=== PATIENT | female | born 1960 | race Caucasian/White ===

== ENCOUNTER 2017-12-29 14:07 | Emergency (ER) | payer OTHER ==
[~2017-12-29] VITALS: Ht 167.6 cm; Wt 81.0 kg
[2017-12-29 14:09] VITALS: TEMP 36.7; Ht 167.6 cm; Wt 81.0 kg
--- NOTE | 2017-12-29 15:24 | DIAGNOSTIC IMAGING REPORT ---
R KNEE 3 VIEWS CLINICAL HISTORY: Right knee pain status post trauma COMPARISON: None. DISCUSSION: No acute fractures or dislocations are visualized. There are degenerative changes with dorsal patellar spurring. There is moderate lateral patellar tilt. There is prominent prepatellar soft tissue swelling. IMPRESSION: 1. Prominent prepatellar soft tissue swelling 2. No acute fractures or dislocations 3. Moderate lateral patellar tilt Electronically signed by: Brandon Johnston M.D. 12/29/2017 3:23 PM Dictated Date/Time: 12/29/2017 3:21 PM
[2017-12-29 16:52] VITALS: BP 136/87; PULSE 62; O2SAT 97
--- NOTE | 2017-12-29 17:04 | DIAGNOSTIC IMAGING REPORT ---
MAXILLOFACIAL CT CT DOSE: 660.80 mGy.cm HISTORY: Fall; L sided facial pain TECHNIQUE: Multiaxial CT images of the maxillofacial region were performed and reformatted in the coronal plane without the use of contrast. A dose lowering technique was utilized adhering to the principles of ALARA. COMPARISON: None. FINDINGS: The visualized cervical spine, skull base, pterygoid plates, nasal bones, lamina papyracea, orbital floors, mandible, and zygomatic arches are intact. No fractures. The orbits are unremarkable. Small left facial subcutaneous contusion. IMPRESSION: No fractures within the maxillofacial region. Electronically signed by: Angel Fernandez M.D. 12/29/2017 5:03 PM Dictated Date/Time: 12/29/2017 4:56 PM
--- NOTE | 2017-12-30 14:22 | EMERGENCY ROOM VISIT NOTE ---
ED Visit Note First contact with patient: 14:14 Chief Complaint: Right knee and left cheek pain. History of Present Illness: Ms. May is a 57-year-old white female who is brought into the ED via wheelchair accompanied by her daughter complaining of anterior right knee pain and left facial cheek pain. Patient reports approximately 2 hours prior to arrival at the hospital she was at work, tripped over her feet and fell onto the floor. She reports falling directly on to the anterior aspect of the right knee. Since that time she has had constant pain. She describes a combination of sharp and throbbing sensation of the knee. She rates her discomfort 7/10. Her pain is nonradiating. Sharp pain worsens with palpation of the anterior knee, flexion of the knee, and ambulation. She has not identified any alleviating factors related to the pain. She has not taken medication for pain prior to arrival at the hospital. Additionally she does report that she struck the left side of her face on the ground also and broke her glasses. Her pain is located over the proximal aspect of the zygomatic area and also the inferior left orbit. She describes this as an achy and throbbing sensation. She does not rate her discomfort but reports it is much less than her knee. Her pain worsens with palpation. She has not had a medication for pain prior to arrival at the hospital. She denies any dizziness, lightheadedness prior to the fall, loss of consciousness at the time of the fall and no signs of head injury since the fall. She denies any associated symptoms with her facial pain including visual changes, hearing changes, difficulty speaking, difficulty swallowing, difficulty ambulating/coordinating body movements, neck pain. She denies any associated symptoms with her knee pain including hip pain, ankle pain, leg weakness/numbness/tingling. Additionally she denies any previous significant injuries or surgeries to the knee. Review of Systems: As noted above in history of present illness. 8 body systems were reviewed and found to be negative as noted above. Past Medical History: Patient denies. Current Medications: Patient denies. Allergies to Medications: Patient denies. Social History: Patient is currently employed; she feels safe in her home environment; she denies tobacco use. Physical Examination: Vital Signs: Date Time Temp Pulse Resp B/P (MAP) Pulse Ox O2 Delivery O2 Flow Rate FiO2 12/29/17 16:52 62 16 136/87 97 12/29/17 14:09 36.7 86 18 143/99 98 Room Air GENERAL: 57-year-old female in mild distress due to pain, nontoxic-appearing, afebrile and hemodynamically stable. NEUROLOGICAL: Awake, alert and oriented to person, place and time. Answering questions appropriately and following commands. Good hand eye coordination. No focal motor or sensory deficits. Cranial nerves II through XII grossly intact. SKIN: Warm, dry and pink. No soft tissue trauma noted. HEENT: Atraumatic and normocephalic. No raccoons eyes or white signs. No drainage from the ears of the nostril; no hemotympanum. Face: Mild tenderness over the left zygomatic area and left inferior orbit area without bony deformity , bony crepitus, swelling or ecchymosis. PERRLA. EOMI without nystagmus. Sclera white and conjunctiva pink. No malocclusion. No intraoral trauma. Airway patent. Speech is normal and clear. Trachea midline. No jugular venous distention. BACK: No tenderness over the bony cervical and thoracic spine. Full range of motion of the cervical spine. . RIGHT LOWER EXTREMITY: No gross bony deformity. No shortening or malrotation. No tenderness in the hip, lower leg, ankle or foot. Moderate tenderness directly over the patella with moderate swelling and what appears to be early bruising. No open soft tissue injury. No joint line tenderness. No laxity of the collateral or cruciate ligaments. Decreased range of motion due to pain and swelling limiting meniscus examination. Within the stabilize she had full range of motion and sensation throughout the ankle and foot. ED Course: Patient is assessed as noted above. Patient's medication list was reviewed. Patient was offered pain medication and refused; she was given ice for pain and comfort. Right Knee X-Rays: Were read by myself and the radiologist showing no acute fractures or dislocations. Prominent prepatellar soft tissue swelling with a moderate lateral patellar tilt. Facial CT: Was reviewed by myself and read by the radiologist and shows no facial fractures. Radiologist did note a small left facial subcutaneous contusion. Patient was placed in a knee immobilizer and on nonweightbearing crutches. Patient was educated about today's findings and instructed on her treatment plan ; she verbalized understanding and agreement with this plan. Clinical Impression: Right knee contusion. Left-sided facial pain. Status post fall. Work-related injury. Disposition: Patient discharged home in stable condition accompanied by her daughter; prior to departure she was reassessed and subjectively reported she was feeling much better and rated her overall discomfort 3/10. Plan: Comfort measures including rest, ice, elevation, splint and crutch use were discussed with the patient. Signs of head injury were discussed with the patient. Patient was signed off of work for 3 days. Patient was encouraged to follow-up with Workmen's Compensation for recheck and return to work instruction. Patient was encouraged return the ED for worsening/uncontrolled pain, right leg weakness/numbness/tingling, any signs of head injury or any new/concerning symptoms.
== END 2017-12-29 17:15 | disposition home or self-care (01) ==
LOC: C.EDB 14:08 → C.EDD 17:15
DX: S80.01XA Contusion of right knee, initial encounter (principal); S00.83XA Contusion of other part of head, initial encounter; W19.XXXA Unspecified fall, initial encounter; Y99.0 Civilian activity done for income or pay